=== PATIENT | female | born 1955 | race Caucasian/White ===

== ENCOUNTER 2023-01-08 20:33 | Emergency (ER) | payer MEDICARE ==
[~2023-01-08] VITALS: Ht 162.6 cm; Wt 56.0 kg
[2023-01-08] MEDS ORDERED: TOPROL XL25 MG PO (23:33)
[2023-01-08 23:50] VITALS: BP 125/110
--- NOTE | 2023-01-09 12:30 | EKG ---
[facility] [address] [facility] [place], [place] [address] Signed Sinus tachycardia with premature atrial complexes with aberrant conduction ST \T\ T wave abnormality, consider inferior ischemia Abnormal ECG No previous ECGs available Confirmed by MAGALI MARTINEZ MD ([id number] on 01/09/2023 12:29:57 PM Electronically Signed By: MAGALI MARTINEZ MD 01/09/23 1230 PATIENT NAME: DYLAN MORALES Electrocardiogram DATE OF : 53 PHYSICIAN: MAGALI MARTINEZ MD REPORT #: [id number] REPORT IS CONFIDENTIAL AND NOT TO BE RELEASED WITHOUT AUTHORIZATION
== END 2023-01-08 23:50 | disposition home or self-care (01) ==
LOC: ED 20:33
DX: B34.9 Viral infection, unspecified (principal); I10 Essential (primary) hypertension; I49.1 Atrial premature depolarization; Z88.1 Allergy status to other antibiotic agents
CPT/HCPCS: 36415; 71045; 80053; 83735; 84484; 85025; 93005; 93010; 96374; 99284-25; A9270